=== PATIENT | female | born 1990 | race Caucasian/White ===

== ENCOUNTER 2018-06-27 09:52 | Emergency (ER) | payer MEDICAID ==
[2018-06-27] MEDS ORDERED: IBUPROFEN 600 MG TAB PO ONE (10:56)
[2018-06-27] MEDS ORDERED: ACETAMINOPHEN 500 MG TAB PO ONE (10:57)
[2018-06-27] MEDS ORDERED: traMADol 50 MG TAB PO ONE (10:57)
--- NOTE | 2018-06-27 11:18 | EDPHY ---
H & P Time Seen by Provider: 06/27/18 10:11 HPI/ROS: This patient complains of sore throat. She develops symptoms a week prior to arrival and was seen 3 days prior to arrival at [facility] with a negative rapid strep at that time. She also negative flu test. However she reports increasing intensity of her sore throat since that time with fevers at home. She states the pain is 6/10 at baseline and she has worsening with swallowing. She still tolerating p.o. Intake despite this. She reports associated mild nausea but no vomiting. She is accompanied by her mother who brought her here by private vehicle for further evaluation ROS: Constitutional: As per HPI HEENT: No nasal congestion or sinus pain. No ear pain Pulmonary: No significant cough shortness of breath Cardiovascular: No lightheadedness GI: No abdominal pain 7 point review of symptoms is performed and otherwise negative with exception of pertinent positives and negatives listed in HPI and ROS Smoking Status: Never smoked Physical Exam: Physical Exam Vital signs are normal. General: No acute distress HEENT: Nose: Clear bilaterally. Ears: External canals and tympanic membranes are clear with no erythema or abnormal findings bilaterally. Oropharynx: Positive for erythema and exudates bilaterally without significant tonsillar swelling. No dysphonia. No drooling or stridor. Eyes: Pupils equal and react to light. Extraocular motions are intact. Neck: Supple with no meningismus. Positive a anterior cervical lymphadenopathy. Negative for posterior cervical adenopathy Lungs: Clear to auscultation bilaterally with no rales, rhonchi or wheeze. No respiratory distress. Cardiac: Regular rate and rhythm with no murmur gallop or rub Skin: No rash or pallor. Neuro: Alert with no focal deficits noted. Initial differential diagnosis: Strep pharyngitis, other bacterial pharyngitis , viral pharyngitis Constitutional: Initial Vital Signs Temperature (C) 37.8 C 06/27/18 10:00 Heart Rate 98 06/27/18 10:00 Respiratory Rate 16 06/27/18 10:00 Blood Pressure 125/87 H 06/27/18 10:00 O2 Sat (%) 95 06/27/18 10:00 O2 Delivery Mode Room Air Allergies/Adverse Reactions: No Known Allergies Allergy (Verified 06/27/18 09:59) Home Medications: Medication Instructions Recorded Control Pills 05/11/15 Azithromycin [Zithromax] 250 mg PO DAILY #6 tab 06/27/18 Mbx Soln;Maalox/Diphen/Lido 15 ml PO PRN PRN #150 ml 06/27/18 [Maalox/Diphenhydramine/Lido] Sertraline HCl 06/27/18 traMADol [Ultram 50 mg (*)] 50 - 100 mg PO Q4 PRN #15 tab 06/27/18 MDM/Departure - MDM Medications Given: Discontinued Medications Acetaminophen (Tylenol) 1,000 mg PO EDNOW ONE Stop: 06/27/18 10:58 Last Admin: 06/27/18 11:15 Dose: 1,000 mg Ibuprofen (Motrin) 600 mg PO EDNOW ONE Stop: 06/27/18 10:57 Last Admin: 06/27/18 11:14 Dose: 600 mg Tramadol HCl (Ultram) 50 mg PO EDNOW ONE Stop: 06/27/18 10:58 Last Admin: 06/27/18 11:15 Dose: 50 mg ED Course/Re-evaluation: Ibuprofen, Tylenol and tramadol with partial relief for symptoms POC rapid strep is negative Discussion: Patient with significant tonsillitis with negative rapid strep- possibilities include false negative strep test, viral tonsillitis or other bacterial tonsillitis. I counseled the patient regarding these considerations. Will treat her with Zithromax antibiotic MD exclusion and tramadol if needed for pain that prevents sleep. She understands need to return emergency department she develops significant worsening of her symptoms despite the treatment plan - Depart Disposition: Home, Routine, Self-Care Clinical Impression: Tonsillitis with exudate Condition: Good Instructions: Tonsillitis (ED) Additional Instructions: Diagnosis: Tonsillitis Plan: Ibuprofen Tylenol for pain. MDX solution in addition if needed. Tramadol in addition if needed for pain that prevents sleep. Zithromax antibiotic Follow up primary care physician for any ongoing symptoms despite treatment plan. Return emergency department for any significant worsening despite treatment plan. Prescriptions: Azithromycin [Zithromax] 250 mg PO DAILY #6 tab Mbx Soln;Maalox/Diphen/Lido [Maalox/Diphenhydramine/Lido] 15 ml PO PRN PRN #150 ml PRN Reason: throat pain traMADol [Ultram 50 mg (*)] 50 - 100 mg PO Q4 PRN #15 tab PRN Reason: breakthrough pain Referrals: ASHLEY CHURCH,. [Primary Care Provider] - As per Instructions
[2018-06-27 11:46] VITALS: BP 120/86
== END 2018-06-27 11:42 | disposition home or self-care (01) ==
LOC: CED 09:52
DX: J03.90 Acute tonsillitis, unspecified (principal)
CPT/HCPCS: 99284-ER